=== PATIENT | male | born 1975 | race Caucasian/White ===

== ENCOUNTER 2021-09-30 11:59 | Emergency (ER) | payer OTHER ==
[~2021-09-30] VITALS: Ht 172.7 cm; Wt 72.0 kg
[2021-09-30 12:56] LABS: BASOPHILS % 1.3 % (0.0-2.0); EOSINOPHILS % 1.8 % (0.0-5.0); HEMATOCRIT. 42.8 % (42.0-52.0); HEMOGLOBIN. 14.4 g/dL (14.0-18.0); LYMPHOCYTES % 11.3 % (20.0-50.0); MEAN CORPUSCULAR HEMOGLOBIN 29.2 pg (28.0-32.0); MEAN CORPUSCULAR VOLUME 86.5 fL (80.0-94.0); MEAN PLATELET VOLUME 8.3 fl (7.4-10.4); NEUTROPHILS % 79.6 % (40.0-76.0); PLATELET 279 x1000/uL (130-400); RED BLOOD CELL COUNT 4.94 mill/uL (4.7-6.1); RED CELL DISTRIBUTION WIDTH 13.7 % (11.6-14.6)
[2021-09-30 13:04] LABS: CHLORIDE 106 mEq/L (98-107)
[2021-09-30] MEDS ORDERED: ONDANSETRON HCL 4MG/2ML INJ IV ONE (13:15)
[2021-09-30] MEDS ORDERED: SODIUM CHLORIDE 0.9% 1,000 ML IV ONE (13:15)
[2021-09-30] MEDS ORDERED: FAMOTIDINE 20MG/2ML VIAL IV ONE (13:15)
[2021-09-30 15:00] VITALS: BP 158/94
== END 2021-09-30 16:10 | disposition home or self-care (01) ==
LOC: ER 11:59
DX: R10.11 Right upper quadrant pain (principal); T43.625A Adverse effect of amphetamines, initial encounter; Z98.890 Other specified postprocedural states; Y92.9 Unspecified place or not applicable
CPT/HCPCS: 36415; 80053; 83690; 85025; 99283; J7030